=== PATIENT | female | born 1985 | race Caucasian/White ===

== ENCOUNTER 2023-03-12 18:21 | Emergency (ER) | payer OTHER, MEDICARE, MEDICAID ==
[~2023-03-12] VITALS: Ht 169 cm; Wt 84.0 kg
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
[2023-03-12] MEDS ORDERED: HYDROcodone/APAP 5 MG/325 MG (LORTAB) TAB PO ONE (19:00)
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
[2023-03-12] MEDS ORDERED: NAPR-915 PO (19:25)
[2023-03-12 19:32] VITALS: BP 110/80
== END 2023-03-12 19:31 | disposition home or self-care (01) ==
LOC: ER 18:25
DX: M54.50 Low back pain, unspecified (principal); R20.0 Anesthesia of skin; M79.651 Pain in right thigh; R20.2 Paresthesia of skin; F17.210 Nicotine dependence, cigarettes, uncomplicated; Z87.39 Personal history of other diseases of the musculoskeletal system and connective tissue; Z98.890 Other specified postprocedural states; V49.9XXA Car occupant (driver) (passenger) injured in unspecified traffic accident, initial encounter; Y92.481 Parking lot as the place of occurrence of the external cause
CPT/HCPCS: 72100

== ENCOUNTER 2023-04-13 22:35 | Emergency (ER) | payer MEDICARE, MEDICAID ==
[~2023-04-13] VITALS: Ht 165 cm; Wt 83.9 kg
[~2023-04-13 22:35] MED LIST: NAPR-915 PO
[2023-04-13 22:43] VITALS: BP 146/89
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
== END 2023-04-13 23:04 | disposition left against medical advice (07) ==
LOC: EDUNIT# 22:35 → ER 22:38
DX: Z02.83 Encounter for blood-alcohol and blood-drug test (principal); E66.9 Obesity, unspecified; Z68.29 Body mass index [BMI] 29.0-29.9, adult
CPT/HCPCS: 99281

== ENCOUNTER 2023-06-19 14:59 | Emergency (ER) | payer MEDICARE, MEDICAID ==
[~2023-06-19] VITALS: Ht 165.1 cm; Wt 79.0 kg
--- NOTE | 2023-06-19 15:31 | ED Psychosocial ---
General Chief Complaint: Suicidal Ideation Risk Stated Complaint: SUICIDAL IDEATIONS Nursing Triage Note: pt ambulatory to room. states she started having suicidal thoughts yesterday. states she is thinking about running into a car. pt reports hx of suicide attempts. pt is not specific about this, but states it has been a few years since last attempt. pt reports being newly homeless and has nowhere to stay tonight. pt is a&ox4, speech normal on arrival, appropriate affect Source: patient Exam Limitations: no limitations (OFE SUN APRN) History of Present Illness Date Seen by Provider: Jun 19, 2023 Time Seen by Provider: 15:10 Initial Comments 37-year-old female presents to the ER with reports of suicidal thoughts starting yesterday. She states that she has been thinking about walking out in front of vehicles. She states that she does have some intention of doing this. She states she has attempted this before a couple years ago. She reports recent stressors, she recently quit her job, she is also newly homeless. She states she does not have support from friends or family. She denies any future plans. Denies any homicidal ideation or hallucinations. She denies chest pain, shortness of air, abdominal pain, nausea, vomiting, diarrhea. Past medical history includes PTSD and type II diabetes. She is a recovering opioid addict, last use was 1 year ago. She states she still uses marijuana and benzos. She also smokes tobacco, denies alcohol use. She currently takes lisinopril, hydroxyzine, metformin, atorvastatin, Pristiq, Abilify, meloxicam, tenacity in, trazodone, buprenorphine/naloxone. (OFE SUN APRN) Allergies and Home Medications Allergies Coded Allergies: No Known Drug Allergies (Unverified , 03/12/23) Patient Home Medication List Home Medication List Reviewed: Yes (OFE SUN APRN) Naproxen (Naproxen) 500 Mg Tablet, 500 MG PO Q12H Prescribed by: GRAYSON KENT on 03/12/231924 Review of Systems Constitutional: see HPI (OFE SUN APRN) Past Aisocfp-Wnfjcz-Tbghsn Hx Immunizations Up To Date First/Initial COVID19 Vaccinat: YES (OFE SUN APRN) Past Medical History Surgery/Hospitalization HX: TYPE II DIABETIC, PTSD, DEGENERATIVE DISK, BACK FUSION, LAMENECTOMY, HYST, HANSEL, APPE (OFE SUN APRN) Physical Exam Vital Signs - First Documented 06/19/23 06/20/23 15:05 05:00 Temp 36.4 Pulse 48 Resp 16 B/P (MAP) 140/79 (99) Pulse Ox 99 O2 Delivery Room Air (NANO ORTIZ MD) Capillary Refill : (OFE SUN APRN) Height, Weight, BMI Height: '" Weight: lbs. oz. kg; 28.00 BMI Method: General Appearance: WD/WN, no apparent distress Neck: supple, normal inspection Respiratory: lungs clear, normal breath sounds, no respiratory distress, no accessory muscle use Cardiovascular: bradycardia Extremities: normal range of motion, normal inspection Neurologic/Psychiatric: alert, normal mood/affect Appearance/Memory: appropriate appearance, appropriate insight, neat Behavior/Eye Contact: cooperative, good eye contact, normal speech Thoughts/Hallucinations: normal thought pattern, no apparent hallucination Skin: normal color, warm/dry (OFE SUN APRN) Progress/Results/Core Measures Results/Orders Lab Results Laboratory Tests Test 06/19/23 15:28 06/19/23 16:05 06/20/23 05:35 Range/Units White Blood Count 9.8 4.3-11.0 10^3/uL Red Blood Count 4.80 3.80-5.11 10^6/uL Hemoglobin 14.7 11.5-16.0 g/dL Hematocrit 43 35-52 % Mean Corpuscular Volume 89 80-99 fL Mean Corpuscular Hemoglobin 31 25-34 pg Mean Corpuscular Hemoglobin Concent 35 32-36 g/dL Red Cell Distribution Width 13.0 10.0-14.5 % Platelet Count 179 130-400 10^3/uL Mean Platelet Volume 11.1 9.0-12.2 fL Immature Granulocyte % (Auto) 0 % Neutrophils (%) (Auto) 70 42-75 % Lymphocytes (%) (Auto) 22 12-44 % Monocytes (%) (Auto) 6 0-12 % Eosinophils (%) (Auto) 1 0-10 % Basophils (%) (Auto) 0 0-10 % Neutrophils # (Auto) 6.9 1.8-7.8 10^3/uL Lymphocytes # (Auto) 2.2 1.0-4.0 10^3/uL Monocytes # (Auto) 0.6 0.0-1.0 10^3/uL Eosinophils # (Auto) 0.1 0.0-0.3 10^3/uL Basophils # (Auto) 0.0 0.0-0.1 10^3/uL Immature Granulocyte # (Auto) 0.0 0.0-0.1 10^3/uL Urine Color ORANGE Urine Clarity CLEAR Urine pH 7.0 5-9 Urine Specific Clemons 1.025 H 1.016-1.022 Urine Protein NEGATIVE NEGATIVE Urine Glucose (UA) NEGATIVE NEGATIVE Urine Ketones TRACE H NEGATIVE Urine Nitrite NEGATIVE NEGATIVE Urine Bilirubin NEGATIVE NEGATIVE Urine Urobilinogen 0.2 < = 1.0 MG/DL Urine Leukocyte Esterase NEGATIVE NEGATIVE Urine RBC (Auto) NEGATIVE NEGATIVE Urine RBC NONE /HPF Urine WBC RARE /HPF Urine Squamous Epithelial Cells 10-25 H /HPF Urine Crystals PRESENT H /LPF Urine Calcium Oxalate Crystals /LPF Urine Amorphous Sediment RARE CARLTON PHOSPHATE H /LPF Urine Bacteria MODERATE H /HPF Urine Casts NONE /LPF Urine Mucus NEGATIVE /LPF Urine Culture Indicated NO Sodium Level 143 135-145 MMOL/L Potassium Level 4.1 3.6-5.0 MMOL/L Chloride Level 104 98-107 MMOL/L Carbon Dioxide Level 24 21-32 MMOL/L Anion Gap 15 H 5-14 MMOL/L Blood Urea Nitrogen 14 7-18 MG/DL Creatinine 0.67 0.60-1.30 MG/DL Estimat Glomerular Filtration Rate 114 BUN/Creatinine Ratio 21 Glucose Level 101 70-105 MG/DL Calcium Level 9.3 8.5-10.1 MG/DL Corrected Calcium 9.0 8.5-10.1 MG/DL Total Bilirubin 0.4 0.1-1.0 MG/DL Aspartate Amino Transf (AST/SGOT) 182 H 5-34 U/L Alanine Aminotransferase (ALT/SGPT) 181 H 0-55 U/L Alkaline Phosphatase 107 40-136 U/L Total Protein 7.0 6.4-8.2 GM/DL Albumin 4.4 3.2-4.5 GM/DL TSH Hemphill Testing 0.81 0.35-4.94 UIU/ML Serum Test, Qualitative NEGATIVE NEGATIVE Salicylates Level < 5.0 L 5.0-20.0 MG/DL Urine Opiates Screen NEGATIVE NEGATIVE Urine Oxycodone Screen NEGATIVE NEGATIVE Urine Methadone Screen NEGATIVE NEGATIVE Urine Propoxyphene Screen NEGATIVE NEGATIVE Acetaminophen Level < 10 L 10-30 UG/ML Urine Barbiturates Screen NEGATIVE NEGATIVE Ur Tricyclic Antidepressants Screen NEGATIVE NEGATIVE Urine Phencyclidine Screen NEGATIVE NEGATIVE Urine Amphetamines Screen NEGATIVE NEGATIVE Urine Methamphetamines Screen NEGATIVE NEGATIVE Urine Benzodiazepines Screen NEGATIVE NEGATIVE Urine Cocaine Screen NEGATIVE NEGATIVE Urine Cannabinoids Screen POSITIVE H NEGATIVE Serum Alcohol < 10 <10 MG/DL SARS-CoV-2 RNA (RT-PCR) Not Detected Not Detecte Glucometer 116 H 70-110 MG/DL (NANO ORTIZ MD) My Orders Orders - NANO ORTIZ MD Medically Cleared Psych Txfr (06/20/23 01:26) Accucheck Stat ONCE (06/20/23 06:00) (NANO ORTIZ MD) Vital Signs/I&O (NANO ORTIZ MD) Blood Pressure Mean: 99 Progress Progress Note : Progress Note Patient seen and evaluated, resting comfortably in bed, no acute distress. Based on exam and symptoms, work-up initiated including CBC, CMP, alcohol level, Tylenol level, salicylate level, urine drug screen, urinalysis, EKG, COVID swab. Patient changed into paper scrubs. Will perform 15-minute checks. Will contact [facility] for evaluation after medical clearance. 1642 Labs reviewed. CBC grossly normal. CMP shows elevated AST and ALT, patient reports that she has a history of elevated liver functions. Salicylate negative, Tylenol negative, alcohol negative. Urine drug screen positive for cannabinoids. Urinalysis negative for infection. COVID-negative. [facility] contact for evaluation. [id number] patient evaluated by [facility], they recommend admission. They called [facility] in [place] who states that they have bed availability, but [facility] in [place] is requesting further labs including TSH, vitamin B12, folate, hCG. These have been ordered. 1999 vitamin B12 and folate are send outs, [facility] was called and informed of this. Labs sent to [facility]. They stated that they need a COVID antigen not a COVID PCR. We are unable to complete the COVID antigen. [facility] states that they will not accept patients without the COVID antigen test. Nursing staff will contact [facility] for assistance in finding other placement. [id number] nursing staff has called several facilities and sent patient's information for review. (OFE SUN APRN) Progress Note #1: Time: 01:25 Progress Note Patient resting comfortably. No needs at this time. Has spoken with [facility] intake. Agreeable to transfer. Progress Note #2: Time: 05:00 Progress Note [facility] called back and were agreeable to re-looking at patient for acceptance. Information again faxed to [facility]. This is more agreeable to the patient to be closer to "home". I discussed the case with the resident on for psychiatry. They were concerned about the patient's oxygen at 90/91% on room air as well as documented bradycardia (HR in the 40's). New VS obtained - when awake and talking Pox 94-96% and HR now 63. I discussed with the resident that the patient is completely asymptomatic of any complaints. No concerning findings on laboratory evaluation or physical exam. CBC normal, Chem remarkable for mild elevation in LFT's. UA clear of infection. Tox positive for THC only, neg asa, etoh and acetaminophen. EKG without concerning findings, nonspecific STTW change in V1,2,3. She has no chest pain or other anginal equivalent complaints.. Lungs clear, HR regular. Afebrile. Resident advised he would speak to his attending. Direct call called us back and advised of acceptance a short while later. (NANO ORTIZ MD) Initial ECG Impression Date: Jun 19, 2023 Initial ECG Impression Time: 15:35 Initial ECG Rate: 47 Initial ECG Rhythm: S.Bin Initial ECG Intervals: Normal Initial ECG Impression: Nonspecific Changes Initial ECG Comparisson: No Previous ECG Available (OFE SUN APRN) Departure Impression Primary Impression: Suicidal ideation Disposition: 02 XFER SHT-TRM HOSP Condition: Stable Transfer [facility] Medically Cleared for Xfer: Yes Transfer Reason: Exceeds level of care Time Spoke to Accepting Phy: 05:00 Transfer Progress Notes Accepted to [facility] Transfer Facility: [facility] Method of Transfer: Private Vehicle (NANO ORTIZ MD) Departure-Patient Inst. Referrals: AILYN VAUGHN APRN (PCP/Family) Primary Care Physician Patient Instructions: OUTPT MENTAL HEALTH SERVICES Copy Copies To 1: KALIE GUERRERO BRITTANY R APRN Jun 19, 2023 15:31 NANO ORTIZ MD Jun 20, 2023 01:26
[2023-06-19 16:05] LABS: AMPHETAMINE SCREEN, URINE NEGATIVE (NEGATIVE); BARBITURATE SCREEN URINE NEGATIVE (NEGATIVE); CANNABINOID SCREEN, URINE POSITIVE (NEGATIVE); COCAINE SCREEN URINE NEGATIVE (NEGATIVE); METHADONE STAT NEGATIVE (NEGATIVE); OPIATE SCREEN URINE NEGATIVE (NEGATIVE); OXYCODONE STAT NEGATIVE (NEGATIVE); PROPOXYPHENE STAT NEGATIVE (NEGATIVE); TRICYCLIC ANTIDEPRESSANTS SCRE NEGATIVE (NEGATIVE)
[2023-06-19 16:09] LABS: AMORPHOUS SEDIMENT,UR RARE AMOR PHOSPHATE /LPF; BACTERIA,URINE MODERATE /HPF; BASOPHILS % (AUTO) 0 % (0-10); BILIRUBIN,URINE NEGATIVE (NEGATIVE); CLARITY,URINE CLEAR; COLOR,URINE ORANGE; EOSINOPHILS # (AUTO) 0.1 10^3/uL (0.0-0.3); EOSINOPHILS % (AUTO) 1 % (0-10); GLUCOSE, URINE (UA) NEGATIVE (NEGATIVE); HEMATOCRIT 43 % (35-52); HEMOGLOBIN 14.7 g/dL (11.5-16.0); KETONES,URINE TRACE (NEGATIVE); LEUKOCYTE ESTERASE ,URINE NEGATIVE (NEGATIVE); LYMPHOCYTES # (AUTO) 2.2 10^3/uL (1.0-4.0); LYMPHOCYTES % (AUTO) 22 % (12-44); MEAN CORPUSCULAR HEMOGLOBIN 31 pg (25-34); MEAN CORPUSCULAR HGB CONC 35 g/dL (32-36); MEAN CORPUSCULAR VOLUME 89 fL (80-99); MEAN PLATELET VOLUME 11.1 fL (9.0-12.2); MONOCYTES # (AUTO) 0.6 10^3/uL (0.0-1.0); MONOCYTES % (AUTO) 6 % (0-12); NEUTROPHILS # (AUTO) 6.9 10^3/uL (1.8-7.8); NEUTROPHILS % (AUTO) 70 % (42-75); NITRITE,URINE NEGATIVE (NEGATIVE); PLATELET COUNT 179 10^3/uL (130-400); PROTEIN,URINE NEGATIVE (NEGATIVE); WBC,URINE RARE /HPF; WHITE BLOOD COUNT 9.8 10^3/uL (4.3-11.0)
[2023-06-19 16:19] LABS: ALBUMIN 4.4 GM/DL (3.2-4.5); CHLORIDE 104 MMOL/L (98-107); POTASSIUM 4.1 MMOL/L (3.6-5.0); SODIUM 143 MMOL/L (135-145)
[2023-06-19 16:21] LABS: CALCIUM 9.3 MG/DL (8.5-10.1)
[2023-06-19 16:22] LABS: GLUCOSE 101 MG/DL (70-105)
[2023-06-19 16:23] LABS: CARBON DIOXIDE 24 MMOL/L (21-32)
[2023-06-19 16:24] LABS: BILIRUBIN,TOTAL 0.4 MG/DL (0.1-1.0)
[2023-06-19 16:26] LABS: ALKALINE PHOSPHATASE 107 U/L (40-136); CREATININE SERUM 0.67 MG/DL (0.60-1.30); GFR ESTIMATED 114
[2023-06-19 16:27] LABS: BUN/CREATININE RATIO 21
[2023-06-19 16:28] LABS: SALICYLATE < 5.0 MG/DL (5.0-20.0)
[2023-06-19 16:29] LABS: ALANINE AMINOTRANSFERASE 181 U/L (0-55)
[2023-06-19 16:37] LABS: ACETAMINOPHEN < 10 UG/ML (10-30)
[2023-06-19] MEDS ORDERED: metFORMIN 500 MG TABLET ONE (20:32)
[2023-06-19] MEDS ORDERED: GABAPENTIN 600 MG TABLET PO SCH (21:00)
[2023-06-19] MEDS ORDERED: traZODone 100 MG (DESYREL) TAB PO SCH (21:00)
[2023-06-20] MEDS ORDERED: metFORMIN 500 MG TABLET PO SCH (07:00)
[2023-06-20 08:36] VITALS: BP 96/64
== END 2023-06-20 08:39 | disposition short-term general hospital (02) ==
LOC: EDUNIT# 14:59 → ER 15:02
DX: R45.851 Suicidal ideations (principal); R74.01 Elevation of levels of liver transaminase levels; R79.89 Other specified abnormal findings of blood chemistry; F43.10 Post-traumatic stress disorder, unspecified; E11.9 Type 2 diabetes mellitus without complications; F17.290 Nicotine dependence, other tobacco product, uncomplicated; Z20.822 Contact with and (suspected) exposure to COVID-19; Z59.00 Homelessness unspecified; Z28.310 Unvaccinated for COVID-19; Z79.899 Other long term (current) drug therapy; Z79.84 Long term (current) use of oral hypoglycemic drugs
CPT/HCPCS: 80053; 80306; 81000; 82607; 82746; 82947; 84443; 84703; 85025; 87636; 93005; 93041; 99285; G0480 ×3; 36415; 80320; 80329